=== PATIENT | male | born 1970 | race Caucasian/White ===

== ENCOUNTER 2017-08-08 17:59 | Inpatient (IN) | payer SELFPAY ==
[~2017-08-08] VITALS: Ht 172.7 cm; Wt 81.6 kg
[2017-08-08 18:41] LABS: BASOPHILS % 0.6 % (0.0-2.0); CHLORIDE 107 mEq/L (98-107); EOSINOPHILS % 2.6 % (0.0-5.0); HEMATOCRIT. 46.1 % (42.0-52.0); HEMOGLOBIN. 15.8 g/dL (14.0-18.0); LYMPHOCYTES % 41.5 % (20.0-50.0); MEAN CORPUSCULAR HEMOGLOBIN 30.8 pg (28.0-32.0); MEAN PLATELET VOLUME 8.7 fl (7.4-10.4); MONOCYTES % 6.2 % (2.0-8.0); NEUTROPHILS % 49.1 % (40.0-76.0); PLATELET 283 x1000/uL (130-400); RED BLOOD CELL COUNT 5.12 mill/uL (4.7-6.1); RED CELL DISTRIBUTION WIDTH 13.1 % (11.6-14.6)
[2017-08-08] MEDS ORDERED: ONDANSETRON HCL 4MG/2ML VIAL IV ONE (18:45)
[2017-08-08] MEDS ORDERED: MORPHINE SULFATE 4 MG/ML CPJ (NOT FOR IM USE) IV ONE ×3 (18:45→22:00)
[2017-08-08 18:47] LABS: C REACTIVE PROTEIN QUANT 1.3 mg/L (0.0-3.0)
[2017-08-08 18:49] LABS: PROTHROMBIN TIME 10.5 sec (9.4-11.6)
[2017-08-08] MEDS ORDERED: SODIUM CHLORIDE 0.9% 1,000 ML IV ONE (19:15)
[2017-08-08 22:05] LABS: CLARITY URINE CLOUDY (CLEAR); COLOR URINE YELLOW (YELLOW); KETONES URINE 1+ (NEGATIVE); LEUKOCYTE ESTERASE URINE NEGATIVE (NEGATIVE); NITRITE URINE NEGATIVE (NEGATIVE); OCCULT BLOOD URINE 3+ (NEGATIVE); PH URINE 5.5 (4.5-8.0); PROTEIN URINE NEGATIVE (NEGATIVE); SPECIFIC GRAVITY URINE 1.017 (1.005-1.030)
[2017-08-08] MEDS ORDERED: MORPHINE SULFATE 4 MG/ML CPJ (NOT FOR IM USE) IV PRN (22:15)
[2017-08-08] MEDS ORDERED: ACETAMINOPHEN 650MG/20.3ML UDC GT PRN (23:15)
[2017-08-08] MEDS ORDERED: GUAIFENESIN 200MG/10ML SUGAR FREE UDC PO PRN (23:15)
[2017-08-08] MEDS ORDERED: DOCUSATE SODIUM 100MG CAPSULE PO PRN (23:15)
[2017-08-08] MEDS ORDERED: ONDANSETRON HCL 4MG/2ML VIAL IV PRN (23:15)
[2017-08-08] MEDS ORDERED: ACETAMINOPHEN 325MG TABLET PO PRN (23:15)
[2017-08-09] VITALS (7 sets, daily range): BP systolic 91–109; BP diastolic 53–66
[2017-08-09] MEDS ORDERED: SODIUM CHLORIDE 0.45% 1,000 ML IV SCH (02:00)
[2017-08-09] MEDS: MORPHINE SULFATE 4 MG/ML CPJ (NOT FOR IM USE) IV PRN ×3 (02:25→15:59)
[2017-08-09] MEDS: HYDROCODONE/ACETAMINOPHEN 10/325MG TABLET PO PRN (03:44)
[2017-08-09] MEDS ORDERED: CEFTRIAXONE 1 G PREMIX 50 ML IV NR (05:00)
[2017-08-09 08:19] LABS: BASOPHILS % 0.4 % (0.0-2.0); EOSINOPHILS % 0.4 % (0.0-5.0); HEMOGLOBIN. 14.3 g/dL (14.0-18.0); LYMPHOCYTES % 19.8 % (20.0-50.0); MEAN CORPUSCULAR HEMOGLOBIN 30.6 pg (28.0-32.0); MEAN CORPUSCULAR VOLUME 89.7 fL (80.0-94.0); MEAN PLATELET VOLUME 9.2 fl (7.4-10.4); MONOCYTES % 7.9 % (2.0-8.0); NEUTROPHILS % 71.5 % (40.0-76.0); PLATELET 263 x1000/uL (130-400); RED BLOOD CELL COUNT 4.69 mill/uL (4.7-6.1); RED CELL DISTRIBUTION WIDTH 12.9 % (11.6-14.6)
[2017-08-09] MEDS: ENOXAPARIN 40MG/0.4ML SYR SUBCUT SCH (08:31)
[2017-08-09 09:07] LABS: CHLORIDE 107 mEq/L (98-107)
[2017-08-09 09:14] LABS: HDL CHOLESTEROL 30 mg/dL (40-59); LDL CHOLESTEROL 124 mg/dL (5-100)
[2017-08-09 09:34] LABS: *BENZODIAZEPINES SCREEN URINE NEGATIVE (NEGATIVE)
[2017-08-09 09:35] LABS: *COCAINE SCREEN URINE NEGATIVE (NEGATIVE)
[2017-08-09 09:36] LABS: METHADONE URINE SCREEN NEGATIVE (NEGATIVE)
[2017-08-09 09:37] LABS: OPIATES URINE SCREEN PRESUMTIVE POSITIVE (NEGATIVE)
[2017-08-09 09:38] LABS: CANNABINOID URINE SCREEN NEGATIVE (NEGATIVE); PHENCYCLIDINE URINE SCREEN NEGATIVE (NEGATIVE)
[2017-08-09 09:40] LABS: *AMPHETAMINES SCREEN URINE NEGATIVE (NEGATIVE)
[2017-08-09 09:41] LABS: *BARBITURATES SCREEN URINE NEGATIVE (NEGATIVE)
[2017-08-09] MEDS: LACTATED RINGERS 1,000 ML IV SCH ×3 (11:04→21:42)
[2017-08-09] MEDS: KETOROLAC 15MG/ML VIAL IV SCH ×2 (11:05→17:39)
[2017-08-09] MEDS: TAMSULOSIN HCL 0.4MG SR CAPSULE PO SCH (11:06)
[2017-08-10 00:17] VITALS: BP 100/62
[2017-08-10] MEDS: LACTATED RINGERS 1,000 ML IV SCH ×5 (01:16→23:05)
[2017-08-10 04:00] VITALS: BP 99/53
[2017-08-10] MEDS: CEFTRIAXONE 1 G PREMIX 50 ML IV SCH (05:13)
[2017-08-10] MEDS: KETOROLAC 15MG/ML VIAL IV SCH ×4 (05:21→18:00)
[2017-08-10 08:00] VITALS: BP 123/79
[2017-08-10] MEDS: ENOXAPARIN 40MG/0.4ML SYR SUBCUT SCH (08:04)
[2017-08-10] MEDS ORDERED: TAMSULOSIN HCL 0.4MG SR CAPSULE PO SCH (09:00)
[2017-08-10] MEDS: MORPHINE SULFATE 4 MG/ML CPJ (NOT FOR IM USE) IV PRN (09:40)
[2017-08-10] MEDS: TAMSULOSIN HCL 0.4MG SR CAPSULE PO SCH (09:46)
[2017-08-10] MEDS ORDERED: TAMS-11 MT (11:48)
[2017-08-10 12:00] VITALS: BP 123/71
[2017-08-10 13:25] LABS: BASOPHILS % 0.7 % (0.0-2.0); EOSINOPHILS % 1.8 % (0.0-5.0); HEMATOCRIT. 40.8 % (42.0-52.0); HEMOGLOBIN. 14.2 g/dL (14.0-18.0); LYMPHOCYTES % 27.8 % (20.0-50.0); MEAN CORPUSCULAR HEMOGLOBIN 30.9 pg (28.0-32.0); MEAN CORPUSCULAR VOLUME 89.2 fL (80.0-94.0); MEAN PLATELET VOLUME 8.8 fl (7.4-10.4); MONOCYTES % 8.9 % (2.0-8.0); NEUTROPHILS % 60.8 % (40.0-76.0); PLATELET 249 x1000/uL (130-400); RED BLOOD CELL COUNT 4.58 mill/uL (4.7-6.1); RED CELL DISTRIBUTION WIDTH 12.8 % (11.6-14.6)
[2017-08-10 13:39] LABS: CHLORIDE 107 mEq/L (98-107)
[2017-08-10] MEDS ORDERED: IOPAMIDOL 61% 300/15 ML VIAL IT ONE ×2 (15:58→15:59)
[2017-08-10] MEDS ORDERED: NORMAL SALINE 0.9% 10 ML SYR ONE (15:59)
[2017-08-10 16:00] VITALS: BP 104/62
[2017-08-10] MEDS ORDERED: PROPOFOL 200MG/20ML VIAL IV ONE (16:57)
[2017-08-10] MEDS ORDERED: MIDAZOLAM HCL 2 MG/2 ML VIAL ONE (17:05)
[2017-08-10] MEDS ORDERED: FENTANYL CITRATE/PF 50MCG/ML 2ML VIAL ONE (18:25)
[2017-08-10] MEDS ORDERED: FENTANYL CITRATE/PF 50MCG/ML 2ML VIAL IV PRN (19:30)
[2017-08-10] MEDS ORDERED: ONDANSETRON HCL 4MG/2ML VIAL IV PRN (19:30)
[2017-08-10 20:00] VITALS: BP 120/69
[2017-08-11] VITALS: BP 121/71
[2017-08-11] MEDS: KETOROLAC 15MG/ML VIAL IV SCH ×3 (00:09→12:00)
[2017-08-11 04:00] VITALS: BP 106/63
[2017-08-11] MEDS: CEFTRIAXONE 1 G PREMIX 50 ML IV SCH (06:44)
[2017-08-11] MEDS: LACTATED RINGERS 1,000 ML IV SCH ×3 (06:44→12:30)
[2017-08-11 08:00] VITALS: BP 110/68
[2017-08-11] MEDS: TAMSULOSIN HCL 0.4MG SR CAPSULE PO SCH (08:05)
[2017-08-11] MEDS: HYDROCODONE/ACETAMINOPHEN 10/325MG TABLET PO PRN (08:05)
[2017-08-11] MEDS: ENOXAPARIN 40MG/0.4ML SYR SUBCUT SCH (08:06)
[2017-08-11 11:36] VITALS: BP 110/68
[2017-08-11 12:00] VITALS: BP 111/75
== END 2017-08-11 13:30 | disposition home or self-care (01) | DRG 443 ==
LOC: ER 18:24 → 6EST 21:56 → EDBEDREQ 21:57 → 6EST 08-09 01:54
PROVIDERS: ADMIT Family Medicine; ATTEND Family Medicine
PROC: BT1DZZZ Fluoroscopy of Right Kidney, Ureter and Bladder (ICD-10-PCS; 2017-08-10)
PROC: 0T738DZ Dilation of Right Kidney Pelvis with Intraluminal Device, Via Natural or Artificial Opening Endoscopic (ICD-10-PCS; principal; 2017-08-10 17:00)
DX: N13.2 Hydronephrosis with renal and ureteral calculous obstruction (principal); K76.0 Fatty (change of) liver, not elsewhere classified; N40.0 Benign prostatic hyperplasia without lower urinary tract symptoms
CPT/HCPCS: 36415; 71045; 74176; 74430; 76857; 80053; 80061; 80305; 81003; 83605; 83690; 85025; 85610; 86140; 86850; 86900; 93005; A4216; C1769; C1893; C2617; J0696; J1650; J1885; J2250; J2270; J2405; J2704; J3010; J7030; J7120; Q9967